=== PATIENT | female | born 1970 | race Native Hawaiian/Other Pacific Islander ===

== ENCOUNTER 2016-04-30 10:26 | Outpatient (CLI) | payer OTHER ==
[~2016-04-30 10:26] MED LIST: ACET7.5T70 PO; ALBUAER5 INH; ALBUTEROL0.083 % IN; ALPR0.2566 PO; FLUT0.05 NAS; GABA300C2 PO; GLIP5TAB65 PO; GLUCOPHAGE1000 MG PO; LEVSIN0.125 MG OR; NEXIUM40 M1 OR; ONDA4TAB3 PO; PANT40TA PO; PROAIR HFA IN; PROM25TA52 PO; RANI150T78 PO; Z-PAK PO
== END 2016-04-30 23:35 | disposition home or self-care (01) ==
LOC: LABW 10:26
DX: R19.7 Diarrhea, unspecified (principal)
CPT/HCPCS: 82272; 87045; 87205; 87328; 87329; 87493; 87798; 87899

== ENCOUNTER 2016-05-24 08:39 | Outpatient (CLI) | payer OTHER | END 2016-05-24 19:27 | disposition home or self-care (01) | LOC: LABW 08:39 | PROVIDERS: Registered Nurse | DX: E11.9 Type 2 diabetes mellitus without complications (principal); E78.4 Other hyperlipidemia; E66.8 Other obesity; I10 Essential (primary) hypertension | CPT/HCPCS: 36415; 80061; 83036; 84460 ==

== ENCOUNTER 2016-10-19 16:08 | Outpatient (CLI) | payer OTHER | END 2016-10-19 16:10 | disposition short-term general hospital (02) | LOC: AMB 16:08 | DX: T42.4X1A Poisoning by benzodiazepines, accidental (unintentional), initial encounter (principal); Y92.018 Other place in single-family (private) house as the place of occurrence of the external cause | CPT/HCPCS: A0425; A0427 ==

== ENCOUNTER 2016-10-19 16:11 | Emergency (ER) | payer OTHER ==
[~2016-10-19] VITALS: Ht 157.5 cm; Wt 59.4 kg
[2016-10-19 16:26] VITALS: TEMP 98
[2016-10-19 17:23] LABS: PLATELET COUNT 129 K/uL (152-353)
[2016-10-19 17:28] LABS: POTASSIUM 4.9 mmol/L (3.6-5.2); SODIUM 140 mmol/L (136-145)
[2016-10-19 19:59] VITALS: BP 135/72
== END 2016-10-19 20:02 | disposition home or self-care (01) ==
LOC: ED 16:11
DX: T42.4X1A Poisoning by benzodiazepines, accidental (unintentional), initial encounter (principal); R53.83 Other fatigue; Y92.018 Other place in single-family (private) house as the place of occurrence of the external cause
CPT/HCPCS: 80053; 85027; 93005; 96365; 99284; J3490

== ENCOUNTER 2017-10-19 20:58 | Outpatient (CLI) | payer OTHER ==
[2017-10-19] MEDS ORDERED: CODEINE/APAP1 TA1 PO ×2 (21:30)
[2017-10-19] MEDS ORDERED: TRAM50TA PO ×2 (21:31)
== END 2017-10-19 21:06 | disposition short-term general hospital (02) ==
LOC: AMB 20:58
DX: R41.82 Altered mental status, unspecified (principal)
CPT/HCPCS: A0425; A0429

== ENCOUNTER 2017-10-19 21:16 | Inpatient (IN) | payer OTHER ==
[~2017-10-19] VITALS: Ht 157.5 cm; Wt 73.1 kg
[2017-10-19] MEDS ORDERED: CODEINE/APAP1 TA1 PO ×2 (21:30)
[2017-10-19] MEDS ORDERED: TRAM50TA PO ×2 (21:31)
[2017-10-19 21:37] VITALS: BP 120/61; TEMP 99.8
[2017-10-19 21:44] LABS: PLATELET COUNT 98 K/uL (152-353)
[2017-10-19 21:51] LABS: POTASSIUM 4.2 mmol/L (3.6-5.2)
[2017-10-19 22:32] VITALS: BP 139/49
[2017-10-19 23:15] VITALS: BP 137/65
[2017-10-19 23:38] VITALS: BP 129/62; TEMP 100.7
[2017-10-20] VITALS (24 sets, daily range): BP systolic 103–145; BP diastolic 46–97; TEMP 97.6–100.2; Ht 157.5 cm; Wt 73.1 kg
[2017-10-20 09:46] LABS: PLATELET COUNT 85 K/uL (152-353)
[2017-10-20 10:02] LABS: POTASSIUM 3.6 mmol/L (3.6-5.2)
[2017-10-21] VITALS (24 sets, daily range): BP systolic 82–126; BP diastolic 50–79; TEMP 97.9–99.4
[2017-10-21 05:48] LABS: PLATELET COUNT 61 K/uL (152-353)
[2017-10-22] VITALS (23 sets, daily range): BP systolic 82–114; BP diastolic 43–70; TEMP 97.8–98.4
[2017-10-22 08:06] LABS: PLATELET COUNT 46 K/uL (152-353)
[2017-10-22 08:18] LABS: POTASSIUM 3.2 mmol/L (3.6-5.2)
[2017-10-23] VITALS (15 sets, daily range): BP systolic 98–118; BP diastolic 42–63; TEMP 97.8–98.7
[2017-10-23 05:48] LABS: PLATELET COUNT 40 K/uL (152-353)
[2017-10-23 06:11] LABS: POTASSIUM 3.4 mmol/L (3.6-5.2)
[2017-10-24 03:53] VITALS: BP 108/50; TEMP 98.2
[2017-10-24 05:33] LABS: PLATELET COUNT 47 K/uL (152-353)
[2017-10-24 06:01] LABS: POTASSIUM 3.6 mmol/L (3.6-5.2)
[2017-10-24 08:00] VITALS: BP 94/40; TEMP 98.1
[2017-10-24] MEDS ORDERED: KEPPRA 500MG TAB PO ×2 (11:35)
[2017-10-24] MEDS ORDERED: WALKER ADULT EX ×2 (11:35)
[2017-10-24] MEDS ORDERED: GABA100C2 PO ×2 (11:35)
[2017-10-24] MEDS ORDERED: LACTSYP31 PO ×2 (11:35)
== END 2017-10-24 13:10 | disposition home or self-care (01) | DRG 92 ==
LOC: ED 21:16 → ICU 22:50 → MED/SURG 10-23 13:15
PROVIDERS: Nurse Practitioner
DX: G92 Toxic encephalopathy (principal); D61.818 Other pancytopenia; G40.802 Other epilepsy, not intractable, without status epilepticus; E11.42 Type 2 diabetes mellitus with diabetic polyneuropathy; J84.10 Pulmonary fibrosis, unspecified; D47.3 Essential (hemorrhagic) thrombocythemia; J44.9 Chronic obstructive pulmonary disease, unspecified; Z72.0 Tobacco use; Z86.73 Personal history of transient ischemic attack (TIA), and cerebral infarction without residual deficits; K74.69 Other cirrhosis of liver; K72.90 Hepatic failure, unspecified without coma
CPT/HCPCS: 36415; 51702; 80053; 80307; 81000; 82140; 82272; 82948; 82962; 83735; 84484; 85027; 93005; 94640; 94664; 94760; 96361; 96365; 96375; 96376; 99285; J0696; J2060; J2270; J2310; J3411; J3475; J3490

== ENCOUNTER 2018-12-09 13:34 | Emergency (ER) | payer OTHER ==
[~2018-12-09] VITALS: Ht 157.5 cm; Wt 73.0 kg
[~2018-12-09 13:34] MED LIST changes: +CODEINE/APAP1 TA1 PO; +GABA100C2 PO; +KEPPRA 500MG TAB PO; +LACTSYP31 PO; +TRAM50TA PO; +WALKER ADULT EX
[2018-12-09 13:43] VITALS: BP 131/57; TEMP 98.1
[2018-12-09 14:02] LABS: PLATELET COUNT 48 K/uL (152-353)
[2018-12-09 14:19] LABS: POTASSIUM 3.6 mmol/L (3.6-5.2)
== END 2018-12-09 16:22 | disposition home or self-care (01) ==
LOC: ED 13:34
PROVIDERS: Emergency Medicine
DX: E11.65 Type 2 diabetes mellitus with hyperglycemia (principal); D64.89 Other specified anemias
CPT/HCPCS: 80053; 81002; 82550; 82553; 83605; 83880; 84484; 85027; 99283

== ENCOUNTER 2018-12-29 20:42 | Outpatient (CLI) | payer OTHER ==
[2018-12-30] MEDS ORDERED: GRALISE600 MG PO (10:34)
[2018-12-30] MEDS ORDERED: RANITIDINE 150150 MG PO (10:38)
[2018-12-30] MEDS ORDERED: MOBIC15 MG PO (10:39)
[2018-12-30] MEDS ORDERED: SERT50TA PO (10:40)
[2018-12-30] MEDS ORDERED: OMEPRAZOLE20 M1 PO (10:42)
[2018-12-30] MEDS ORDERED: NICODERM C21 MG/241 TD (10:44)
[2018-12-30] MEDS ORDERED: CETIRIZINE10 MG PO (10:45)
[2018-12-30] MEDS ORDERED: IRON325 MG PO (10:45)
[2018-12-30] MEDS ORDERED: LISI5TAB10 PO (10:46)
[2018-12-30] MEDS ORDERED: GLIM4TAB PO (10:47)
== END 2018-12-29 20:47 | disposition short-term general hospital (02) ==
LOC: AMB 20:42
DX: R55 Syncope and collapse (principal); R41.82 Altered mental status, unspecified
CPT/HCPCS: A0425; A0427

== ENCOUNTER 2018-12-29 20:55 | Inpatient (IN) | payer OTHER ==
[~2018-12-29] VITALS: Ht 157.5 cm; Wt 72.1 kg
[2018-12-29 21:10] VITALS: BP 122/63; TEMP 98.5
[2018-12-29 21:51] LABS: PLATELET COUNT 72 K/uL (152-353)
[2018-12-29 22:00] VITALS: BP 119/66; TEMP 98.4
[2018-12-29 22:05] LABS: POTASSIUM 4.8 mmol/L (3.6-5.2); SODIUM 139 mmol/L (136-145)
[2018-12-29 23:00] VITALS: BP 120/68; TEMP 98.4
[2018-12-29 23:57] VITALS: BP 102/53; TEMP 98.5
[2018-12-30] VITALS (25 sets, daily range): BP systolic 100–124; BP diastolic 40–70; TEMP 97.4–98.7; Ht 157.5 cm; Wt 72.1 kg
[2018-12-30] MEDS ORDERED: GRALISE600 MG PO (10:34)
[2018-12-30] MEDS ORDERED: RANITIDINE 150150 MG PO (10:38)
[2018-12-30] MEDS ORDERED: MOBIC15 MG PO (10:39)
[2018-12-30] MEDS ORDERED: SERT50TA PO (10:40)
[2018-12-30] MEDS ORDERED: OMEPRAZOLE20 M1 PO (10:42)
[2018-12-30] MEDS ORDERED: NICODERM C21 MG/241 TD (10:44)
[2018-12-30] MEDS ORDERED: CETIRIZINE10 MG PO (10:45)
[2018-12-30] MEDS ORDERED: IRON325 MG PO (10:45)
[2018-12-30] MEDS ORDERED: LISI5TAB10 PO (10:46)
[2018-12-30] MEDS ORDERED: GLIM4TAB PO (10:47)
[2018-12-30 11:28] LABS: PARTIAL THROMBOPLASTIN TIME 28.9 SECONDS (24.5-33.6)
[2018-12-31] VITALS (7 sets, daily range): BP systolic 101–116; BP diastolic 43–74; TEMP 98–98.4
[2018-12-31 05:48] LABS: PLATELET COUNT 62 K/uL (152-353)
[2018-12-31 06:02] LABS: POTASSIUM 3.9 mmol/L (3.6-5.2)
[2019-01-01] VITALS: BP 122/50; TEMP 98.2
[2019-01-01 04:00] VITALS: BP 110/54; TEMP 98.3
[2019-01-01 07:21] LABS: PLATELET COUNT 69 K/uL (152-353)
[2019-01-01 07:28] LABS: POTASSIUM 4.2 mmol/L (3.6-5.2)
[2019-01-01 08:00] VITALS: BP 121/66; TEMP 98.2
== END 2019-01-01 11:00 | disposition home or self-care (01) | DRG 918 ==
LOC: ED 20:55 → ICU 23:25 → MED/SURG 12-31 11:00
PROVIDERS: Family Medicine; ADMIT Emergency Medicine
DX: T50.901A Poisoning by unspecified drugs, medicaments and biological substances, accidental (unintentional), initial encounter (principal); I51.7 Cardiomegaly; I25.10 Atherosclerotic heart disease of native coronary artery without angina pectoris; I10 Essential (primary) hypertension; J44.9 Chronic obstructive pulmonary disease, unspecified; Z86.73 Personal history of transient ischemic attack (TIA), and cerebral infarction without residual deficits; E11.42 Type 2 diabetes mellitus with diabetic polyneuropathy; K74.69 Other cirrhosis of liver; R41.82 Altered mental status, unspecified; N39.0 Urinary tract infection, site not specified; E83.42 Hypomagnesemia; D63.8 Anemia in other chronic diseases classified elsewhere; G40.802 Other epilepsy, not intractable, without status epilepticus; K21.9 Gastro-esophageal reflux disease without esophagitis; D61.818 Other pancytopenia; K58.8 Other irritable bowel syndrome; Y92.89 Other specified places as the place of occurrence of the external cause; B96.1 Klebsiella pneumoniae [K. pneumoniae] as the cause of diseases classified elsewhere
CPT/HCPCS: 36415; 36600; 80053; 80307; 80320; 80329; 81000; 82140; 82550; 82805; 83036; 83605; 83735; 83880; 84484; 85027; 85610; 85730; 87077; 87086; 87088; 87186; 93005; 94640; 94664; 94760; 96360; 96365; 99285; J0744; J3475

== ENCOUNTER 2019-02-25 22:16 | Emergency (ER) | payer OTHER ==
[~2019-02-25] VITALS: Ht 157.5 cm; Wt 74.8 kg
[~2019-02-25 22:16] MED LIST changes: +CETIRIZINE10 MG PO; +GLIM4TAB PO; +GRALISE600 MG PO; +IRON325 MG PO; +LISI5TAB10 PO; +MOBIC15 MG PO; +NICODERM C21 MG/241 TD; +OMEPRAZOLE20 M1 PO; +RANITIDINE 150150 MG PO; +SERT50TA PO
[2019-02-26 00:45] LABS: PLATELET COUNT 49 K/uL (152-353)
[2019-02-26 01:03] LABS: POTASSIUM 3.2 mmol/L (3.6-5.2); SODIUM 134 mmol/L (136-145)
[2019-02-26 05:25] VITALS: BP 98/57; TEMP 98
== END 2019-02-26 05:25 | disposition short-term general hospital (02) ==
LOC: ED 22:16
PROVIDERS: Emergency Medicine
DX: S42.492A Other displaced fracture of lower end of left humerus, initial encounter for closed fracture (principal); K74.69 Other cirrhosis of liver; R68.89 Other general symptoms and signs; N39.0 Urinary tract infection, site not specified; R41.82 Altered mental status, unspecified; L03.115 Cellulitis of right lower limb; S20.02XA Contusion of left breast, initial encounter; S20.01XA Contusion of right breast, initial encounter; S30.1XXA Contusion of abdominal wall, initial encounter; D64.89 Other specified anemias; D69.6 Thrombocytopenia, unspecified; W18.39XA Other fall on same level, initial encounter; Y92.89 Other specified places as the place of occurrence of the external cause
CPT/HCPCS: 36415; 80053; 80307; 81000; 82140; 82550; 83735; 84484; 85027; 85610; 85730; 87077; 87086; 87088; 87186; 96361; 96365; 96375; 99285; J1885; J1956

== ENCOUNTER 2019-02-26 05:37 | Outpatient (CLI) | payer OTHER | END 2019-02-26 06:58 | disposition short-term general hospital (02) | LOC: AMB 05:37 | DX: S42.492A Other displaced fracture of lower end of left humerus, initial encounter for closed fracture (principal); M25.552 Pain in left hip; M79.605 Pain in left leg; M79.602 Pain in left arm; W18.39XA Other fall on same level, initial encounter; Y92.89 Other specified places as the place of occurrence of the external cause | CPT/HCPCS: A0425; A0427 ==